=== PATIENT | female | born 1990 | race American Indian/Alaskan Native ===

== ENCOUNTER 2021-03-16 18:09 | Emergency (ER) | payer SELFPAY ==
[2021-03-16 18:51] VITALS: BP 136/81
--- NOTE | 2021-03-16 19:24 | Emergency Department Report ---
ED Fall HPI - General Chief Complaint: Fall Stated Complaint: LT ANKLE INJURY Time Seen by Provider: 03/16/21 18:52 Source: patient Mode of arrival: Ambulatory Limitations: No Limitations - History of Present Illness Initial Comments: Patient is a 30-year-old female presents emergency room complaints of a fall that occurred 3 days ago. Patient states that she was working and carrying a lot of items and slipped and fell. She states that she fell onto her back and inverted her ankle. She states since then she has had low back pain and left ankle pain. She is ambulatory without difficulty. She denies any loss of consciousness, vomiting, vision changes, numbness, weakness, bowel or bladder incontinence, neither injury. No past medical history. No allergies to medications. - Related Data Previous Rx's Medication Instructions Recorded Last Taken Type Naproxen 375 mg PO BID PRN #14 tablet 03/16/21 Unknown Rx ED Review of Systems ROS: Stated complaint: LT ANKLE INJURY Other details as noted in HPI Comment: All other systems reviewed and negative ED Past Medical Hx - Past Medical History Previous Medical History?: No - Surgical History Past Surgical History?: No - Medications Home Medications: Home Medications Medication Instructions Recorded Confirmed Last Taken Type Naproxen 375 mg PO BID PRN #14 tablet 03/16/21 Unknown Rx ED Physical Exam - General Limitations: No Limitations General appearance: alert, in no apparent distress - Head Head exam: Present: atraumatic, normocephalic - Eye Eye exam: Present: normal appearance - ENT ENT exam: Present: mucous membranes moist - Neck Neck exam: Present: normal inspection, full ROM. Absent: tenderness, meningismus - Respiratory Respiratory exam: Present: normal lung sounds bilaterally. Absent: respiratory distress, wheezes, rales, rhonchi, stridor, chest wall tenderness, accessory muscle use, decreased breath sounds, prolonged expiratory - Cardiovascular Cardiovascular Exam: Present: regular rate, normal rhythm, normal heart sounds. Absent: systolic murmur, diastolic murmur, rubs, gallop - Extremities Exam Extremities exam: Present: other (no bony ttp of the LLE, FROM of the LLE, achiles is intact, no deformity, no edema, neurovascularly intact) - Back Exam Back exam: Present: normal inspection, full ROM, paraspinal tenderness (mild bilateral lumbar paraspinal muscular ttp, no midline C-spine, T-spine or L-spine ttp, no step offs, no deformities). Absent: vertebral tenderness - Neurological Exam Neurological exam: Present: alert, oriented X3, CN II-XII intact, normal gait. Absent: motor sensory deficit - Psychiatric Psychiatric exam: Present: normal affect, normal mood - Skin Skin exam: Present: warm, dry, intact ED Course Vital Signs 03/16/21 03/16/21 18:50 18:51 Temperature 99.1 F Pulse Rate 71 Respiratory 18 Rate Blood Pressure 136/81 O2 Sat by Pulse 100 Oximetry ED Medical Decision Making - Radiology Data Radiology results: report reviewed Ordering Physician: VERONIKA LYON Date of Service: 03/16/21 Procedure(s): XR spine lumbosacral 2-3V Accession Number(s): [id number] cc: VERONIKA LYON Fluoro Time In Minutes: LUMBAR SPINE 3 VIEWS 1928 INDICATION: low back pain after fall COMPARISON: None available. FINDINGS: Artifact is noted. Slight scoliosis is seen. Disc spaces are maintained. No fractures or subluxations are noted. LEFT ANKLE 3 VIEWS 1931 INDICATION: Fall, left ankle pain COMPARISON: None available. FINDINGS: No fractures or dislocations are seen. Signer Name: Zeeshan Fan MD Signed: 03/16/2021 7:59 PM Workstation Name: [id number] Transcribed By: GJ Dictated By: Zeeshan Fan MD Electronically Authenticated By: Zeeshan Fan MD Signed Date/Time: 03/16/211958 DD/ 57 TD/TT: - Medical Decision Making Patient is a 30-year-old female presents emergency room complaints of a fall that occurred 3 days ago. Patient states that she was working and carrying a lot of items and slipped and fell. She states that she fell onto her back and inverted her ankle. She states since then she has had low back pain and left ankle pain. She is ambulatory without difficulty. She denies any loss of consciousness, vomiting, vision changes, numbness, weakness, bowel or bladder incontinence, neither injury. No past medical history. No allergies to medications. Vitals are normal. On exam: mild bilateral lumbar paraspinal muscular ttp, no midline C-spine, T-spine or L-spine ttp, no step offs, no deformities, no focal neuro deficits, ambulatory without difficulty, no bony ttp of the LLE, FROM of the LLE, achiles is intact, no deformity, no edema, neurovascularly intact. XR left ankle: FINDINGS: No fractures or dislocations are seen. XR lumbar spine: FINDINGS: Artifact is noted. Slight scoliosis is seen. Disc spaces are maintained. No fractures or subluxations are noted. Patient has no midline tenderness, no step-offs, no deformities, full range of motion, no neuro deficits. Do not suspect acute emergent traumatic injury. Patient given prescription for medication. Huang wrap placed by in service coordinator to the left ankle and patient remained neurovascularly intact. Advised patient Please take medication as prescribed as needed. Follow-up with a primary care doctor. Follow-up with orthopedic doctor if symptoms are improving. Return to emergency room for any new or worsening symptoms. Critical care attestation.: If time is entered above; I have spent that time in minutes in the direct care of this critically ill patient, excluding procedure time. ED Disposition Clinical Impression: Fall Qualifiers: Encounter type: initial encounter Qualified Code(s): W19.XXXA - Unspecified fall, initial encounter Low back pain Qualifiers: Chronicity: acute Back pain laterality: bilateral Sciatica presence: without sciatica Qualified Code(s): M54.50 - Low back pain, unspecified Left ankle pain Qualifiers: Chronicity: acute Qualified Code(s): M25.572 - Pain in left ankle and joints of left foot Disposition: 01 HOME / SELF CARE / HOMELESS Is pt being admited?: No Does the pt Need Aspirin: No Condition: Stable Instructions: Ankle Sprain, Muscle Strain, [id number] Additional Instructions: Please take medication as prescribed as needed. Follow-up with a primary care doctor. Follow-up with orthopedic doctor if symptoms are improving. Return to emergency room for any new or worsening symptoms. Prescriptions: Naproxen 375 mg PO BID PRN #14 tablet PRN Reason: pain Referrals: DEJON FISHER MD [Staff Physician] - 3-5 Days your, primary care doctor [Other] - 3-5 Days Forms: Work/School Release Form(ED) Time of Disposition: 20:07 Print Language: ALGERIAN
--- NOTE | 2021-03-16 20:04 | XRay Report ---
LUMBAR SPINE 3 VIEWS 192 INDICATION: low back pain after fall COMPARISON: None available. FINDINGS: Artifact is noted. Slight scoliosis is seen. Disc spaces are maintained. No fractures or bang bluxations are noted. LEFT ANKLE 3 VIEWS 1931 INDICATION: Fall, left ankle pain COMPARISON: None available. FINDINGS: No fractures or dislocations are seen. Signer Name: Zeeshan Fan MD Signed: 03/16/2021 7:59 PM Workstation Name: [id number]
== END 2021-03-16 20:46 | disposition home or self-care (01) ==
LOC: ED 18:09
DX: M25.572 Pain in left ankle and joints of left foot (principal); M54.50 Low back pain, unspecified; Z79.899 Other long term (current) drug therapy; W20.0XXA Struck by falling object in cave-in, initial encounter; Y93.89 Activity, other specified; Y92.89 Other specified places as the place of occurrence of the external cause; Y99.8 Other external cause status
CPT/HCPCS: 72100; 99283